=== PATIENT | male | born 1995 | race Caucasian/White ===

== ENCOUNTER 2020-02-07 08:52 | Emergency (ER) | payer BC ==
[~2020-02-07] VITALS: Ht 170.2 cm; Wt 89.8 kg
[2020-02-07] MEDS ORDERED: DIAZEPAM 5 MG5 MG PO (09:27)
[2020-02-07] MEDS ORDERED: IBUPROFEN 800800 MG PO (09:27)
[2020-02-07 09:37] VITALS: BP 145/87
== END 2020-02-07 09:39 | disposition home or self-care (01) ==
LOC: M.ERS 08:52
DX: M43.6 Torticollis (principal)

== ENCOUNTER 2020-02-16 11:56 | Emergency (ER) | payer BC ==
[~2020-02-16] VITALS: Ht 170.2 cm; Wt 88.5 kg
[~2020-02-16 11:56] MED LIST: DIAZEPAM 5 MG5 MG PO; IBUPROFEN 800800 MG PO
[2020-02-16 12:39] LABS: INFLUENZA A ANTIGEN Negative (Negative); INFLUENZA B ANTIGEN Negative (Negative)
[2020-02-16] MEDS ORDERED: PREDNISONE 20 M20 MG PO (13:21)
[2020-02-16] MEDS ORDERED: ZPAK PO (13:21)
[2020-02-16] MEDS ORDERED: VENTOLIN HFA 1818 GM INH (13:21)
[2020-02-16 13:39] VITALS: BP 148/78
== END 2020-02-16 13:40 | disposition home or self-care (01) ==
LOC: M.ERS 11:56
PROVIDERS: Nurse Practitioner Family
DX: B34.9 Viral infection, unspecified (principal); Z20.828 Contact with and (suspected) exposure to other viral communicable diseases